=== PATIENT | female | born 1980 | race Caucasian/White ===

== ENCOUNTER 2018-03-19 18:11 | Inpatient (IN) | payer OTHER ==
[~2018-03-19] VITALS: Ht 167.6 cm; Wt 110.5 kg
[~2018-03-19 18:11] MED LIST: CLON0.5T3 PO; EFF50 PO; ESCI1TAB10 PO; ETONMIS VAGRING
--- NOTE | 2018-03-19 18:51 | Progress Note ---
Progress Note Date of Service Mar 19, 2018. Progress Note 37 F P0000 at 39.5 weeks here to r/o labor. Cervix is 2-3/80/-2/vertex/soft. GBS is negative FHT Cat 1. Will ambulate.
[2018-03-19] MEDS ORDERED: PRENTAB26 PO (19:24)
[2018-03-19 19:27] VITALS: Ht 167.6 cm; Wt 110.5 kg
[2018-03-19] MEDS ORDERED: LACTATED RINGER'S 1000ML 1,000 ML IV PRN (22:12)
[2018-03-19] MEDS ORDERED: LACTATED RINGER'S 1000ML 1,000 ML IV SCH (22:12)
[2018-03-19] MEDS ORDERED: BUPIVACAINE 0.25% 30 ML VIAL ONE (22:32)
[2018-03-19] MEDS ORDERED: FENTANYL 2MCG/ML ROPIV 1.25MG/ML 100ML BAG EPI ONE (22:33)
[2018-03-19] MEDS ORDERED: FENTANYL CITRATE INJ 50 MCG/1 ML 2 ML VIAL ONE (22:33)
[2018-03-19] MEDS ORDERED: EpHEDrine SULFATE INJ 50 MG/ML AMP ONE (22:33)
[2018-03-19 22:43] LABS: HEMATOCRIT 38.1 % (37-47); HEMOGLOBIN 12.7 g/dL (12.0-16.0); MEAN CELL VOLUME 91.6 fL (80-100); MEAN CORPUSCULAR HEMOGLOBIN 30.5 pg (25-34); MEAN CORPUSCULAR HGB CONC 33.3 g/dl (32-36); MEAN PLATELET VOLUME 10.9 fL (7.4-10.4); PLATELET COUNT 196 K/uL (130-400); RED CELL DISTRIBUTION WIDTH CV 14.7 % (11.5-14.5); RED CELL DISTRIBUTION WIDTH SD 49.4 fL (36.4-46.3); WHITE BLOOD COUNT 13.29 K/uL (4.8-10.8)
[2018-03-19] MEDS ORDERED: BUTORPHANOL TARTRATE 1 MG/ML VIAL IV PRN (22:45)
--- NOTE | 2018-03-19 22:54 | Progress Note ---
Progress Note Date of Service Mar 19, 2018. Progress Note admit note patient rapidly progressed in labor to 7 cm. T Cat 1. Will admit and plan for epidural.
[2018-03-19] MEDS ORDERED: NALOXONE HCL INJ 1 MG in SODIUM CHLORIDE 0.9% 1000ML 1,000 ML IV PRN (23:54)
[2018-03-19] MEDS ORDERED: LACTATED RINGER'S 1000ML 500 ML IV PRN (23:54)
[2018-03-20] MEDS ORDERED: EpHEDrine SULFATE INJ 50 MG/ML AMP IV PRN
[2018-03-20] MEDS ORDERED: NALBUPHINE HCL INJ 10 MG/ML AMP IV PRN
[2018-03-20] MEDS ORDERED: FENTANYL 2MCG/ML ROPIV 1.25MG/ML 100ML BAG EPI PRN
[2018-03-20] MEDS ORDERED: DiphenhydrAMINE HCL 50 MG/ML VIAL IV PRN
[2018-03-20] MEDS ORDERED: NALOXONE HCL INJ 0.4 MG/1 ML VIAL/CARP IV PRN
[2018-03-20] MEDS ORDERED: OXYTOCIN 30 UNITS/500ML NSS IV ONE ×2 (00:16→04:19)
[2018-03-20] MEDS ORDERED: LACTATED RINGER'S 1000ML 1,000 ML IV SCH (04:41)
[2018-03-20] MEDS ORDERED: BENZOCAINE 20% AER SPR 82.5 GM CAN EXT PRN (04:45)
[2018-03-20] MEDS ORDERED: LANOLIN OINT EXT PRN (04:45)
[2018-03-20] MEDS ORDERED: MEASLES, MUMPS & RUBELLA VIRUS VIAL SQ. ONE (04:45)
[2018-03-20] MEDS ORDERED: DIPHTHERIA/TETANUS/PERTUSSIS 0.5 ML SYR/VIAL IM. ONE (04:45)
[2018-03-20] MEDS ORDERED: SUPERCREAM 0.870 % 15GM JAR EXT PRN (04:45)
[2018-03-20] MEDS ORDERED: OXYTOCIN 30 UNITS/500ML NSS IV PRN (04:45)
[2018-03-20] MEDS ORDERED: HYDROCORTISONE ACETATE 25 MG SUPP PR PRN (04:45)
[2018-03-20] MEDS ORDERED: OXYCODONE/ACETAMINOPHEN 5-325 TAB PO PRN (04:45)
--- NOTE | 2018-03-20 04:51 | Vaginal Delivery Summary ---
Vaginal Delivery Summary live female PRIETO over intact perineum with loose nuchal cord x1 reduced at delivery of head. Apgars 8/9 weight pending. Delayed cord clamping followed by cord blood and spontaneous delivery of intact placenta. No tears. EBL 200 ml. Mom and baby stable. Final sponge and instrument count are correct.
--- NOTE | 2018-03-20 06:53 | Anesthesia Procedure Note ---
Anesthesia Epidural Removal Nt Date & Time Mar 20, 2018 at 06:53 Vital Signs Pain Intensity: 0.0 Notes Mental Status: alert / awake / arousable, participated in evaluation Nausea / Vomiting: adequately controlled Pain: adequately controlled Airway Patency, RR, SpO2: stable & adequate BP & HR: stable & adequate Hydration State: stable & adequate Neuraxial Anesthesia: was administered, sensory block is resolving Anesthetic Complications: no major complications apparent, pt satisfied with anesthetic care Epidural: removed without complications, with tip intact
[2018-03-20] MEDS: IBUPROFEN 600 MG TAB PO PRN ×2 (06:58→23:49)
[2018-03-20 07:45] VITALS: BP 127/67; PULSE 82; TEMP 37.3
[2018-03-20] MEDS: PRENATAL VITAMIN TAB PO SCH (09:19)
[2018-03-20] MEDS: FERROUS SULFATE 325 MG TAB PO SCH (09:20)
[2018-03-20] MEDS: DOCUSATE SODIUM 100 MG CAP PO SCH ×2 (09:20→19:36)
[2018-03-20 12:00] VITALS: BP 134/89; PULSE 92; TEMP 37.3
[2018-03-20] MEDS: ACETAMINOPHEN 325 MG TAB PO PRN ×2 (12:38→19:36)
[2018-03-20 15:20] VITALS: BP 132/83; PULSE 83; TEMP 36.3
[2018-03-20 19:30] VITALS: BP 138/82; PULSE 90; TEMP 37.1
[2018-03-20 23:50] VITALS: BP 129/79; PULSE 81; TEMP 36.9
[2018-03-21 03:35] VITALS: BP 130/77; PULSE 82; TEMP 36.8
[2018-03-21] MEDS: ACETAMINOPHEN 325 MG TAB PO PRN ×2 (03:38→09:19)
[2018-03-21 07:02] LABS: HEMOGLOBIN 10.2 g/dL (12.0-16.0)
--- NOTE | 2018-03-21 07:41 | OB/GYN Progress Note ---
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 Patient is seen and examined. She feels well, no complaints. Ambulating without dizziness Voiding without difficulty Tolerating regular diet with out N&V Bleeding is minimal No fever/ chills/ CP/ SOB/ N&V/ Leg pain Breast feeding without problems Date Time Temp Pulse Resp B/P (MAP) Pulse Ox O2 Delivery O2 Flow Rate FiO2 03/21/18 03:35 36.8 82 16 130/77 (94) Room Air 03/20/18 23:50 36.9 81 18 129/79 (96) Room Air 03/20/18 23:50 Room Air 03/20/18 19:30 37.1 90 20 138/82 (100) Room Air 03/20/18 15:20 Room Air 03/20/18 15:20 36.3 83 18 132/83 (99) Room Air 03/20/18 12:00 37.3 92 18 134/89 (104) Room Air 03/20/18 07:45 37.3 82 18 127/67 (87) Room Air 03/20/18 07:45 Room Air Last 24 Hours Test 03/21/18 06:43 Hemoglobin 10.2 g/dL Hematocrit 31.0 % PE: General: Alert, orientedx3, NAD Abd: soft, NT, fundus firm, below Umbilicus Perineum intact, Lochia rubra minimal Ext; NT, no edema AP: 37 yo s/p , ppd# 1 VSS Afebrile doing well Continue routine care All questions were answered D/C home tomorrow
[2018-03-21 08:00] VITALS: BP 125/77; PULSE 70; TEMP 36.9
[2018-03-21] MEDS: PRENATAL VITAMIN TAB PO SCH (08:11)
[2018-03-21] MEDS: DOCUSATE SODIUM 100 MG CAP PO SCH ×2 (08:11→19:53)
[2018-03-21] MEDS: FERROUS SULFATE 325 MG TAB PO SCH (08:11)
[2018-03-21 15:40] VITALS: BP 122/73; PULSE 81; TEMP 37.3
[2018-03-21] MEDS ORDERED: BISACODYL 5 MG TABEC PO SCH (20:00)
[2018-03-21 23:15] VITALS: BP 134/69; PULSE 66; TEMP 36.7
[2018-03-22] MEDS: ACETAMINOPHEN 325 MG TAB PO PRN (02:09)
[2018-03-22] MEDS ORDERED: BISACODYL 10 MG SUPP PR PRN (07:00)
[2018-03-22] MEDS: DOCUSATE SODIUM 100 MG CAP PO SCH (07:54)
[2018-03-22] MEDS: FERROUS SULFATE 325 MG TAB PO SCH (07:55)
[2018-03-22] MEDS: PRENATAL VITAMIN TAB PO SCH (07:55)
[2018-03-22 08:00] VITALS: BP 127/78; PULSE 65; TEMP 36.6
[2018-03-22] MEDS ORDERED: MTR600X PO (09:51)
--- NOTE | 2018-03-22 09:52 | Discharge Instructions ---
Discharge Instructions Date of Service Mar 22, 2018. Admission Reason for Admission: Labor Check Discharge Discharge Diagnosis / Problem: term delivered Discharge Goals Goal(s): Routine recovery after delivery Activity Recommendations Activity Limitations: as noted below Lifting Limitations: no more than 10 pounds Exercise/Sports Limitations: gradually increase as tolerated May Resume Sexual Activity: after follow-up appointment Shower/Bathe: no limitations Driving or Machine Use: resume 3 days after discharge . Instructions / Follow-Up Instructions / Follow-Up ACTIVITY RECOMMENDATIONS: * Gradual return to full activity over the next 2-3 weeks. * No lifting - nothing heavier than baby over the next 2-3 weeks. * Do not engage in vigorous exercise, sexual activity or sports until cleared by your physician. * Do not drive or operate any motorized equipment until cleared by your physician. * You may shower/bathe daily. BREAST CARE: If you are not breast feeding: * Wear a supportive bra 24 hours a day for one to two weeks. * Avoid stimulating your breasts and nipples as much as possible during the first few weeks after delivery. * When taking a shower, have the warm water hit your back, not breasts. * When your breasts feel full, apply ice packs. Usually three to four times a day helps ease the discomfort. * Take a mild pain medication (Tylenol/Motrin) when you are uncomfortable. If breast feeding: * Use breast milk to lubricate nipples. Lansinoh cream may be used for sore nipples. You do not need to remove cream prior to breast feeding. If using a different brand of cream, check the label for directions regarding removal of cream prior to nursing. * Wear a supportive bra. * If having problems with breasts or breast feeding, call a nissan sales consultant or your health care provider. EPISIOTOMY CARE: After delivery, if you have an episiotomy (stitches), the following steps will ease discomfort and aid healing. * For the first 24 hours after delivery, place ice packs next to your episiotomy to help reduce swelling. * After the first 24 hour-period, sitz baths, either portable or in the tub, are suggested. A shower with a shower arm sprayed over the episiotomy may be comforting. * Denisse care should be done after each voiding and bowel movement. Squirt warm water from a plastic bottle over the perineum (region of the body between the anus and urinary opening) and pat dry. * Use Dermoplast to ease discomfort. Shake container. [place] directly over the episiotomy. * Place a Tucks on a clean sanitary pad next to your episiotomy. OVER THE COUNTER MEDICATION: * For discomfort or pain, you may use Acetaminophen (Tylenol), Ibuprofen (Advil ), or Naproxen (Aleve) following the package directions. * For constipation you may use Colace following the package directions. SPECIAL CARE INSTRUCTIONS: When you are discharged from the hospital, it is important for you to follow the instructions listed below: * During the first week at home, you should be able to care for yourself and your baby. In addition, the usual light household activities are encouraged. * Limit your activities to the way you feel. Do not try to clean the house or move furniture. Be sensible. * If you actively engage in sports and have done so up until the time of your delivery, you may resume these activities as soon as you feel able. This may take up to one month or even longer. Use good judgment. * Continue to take your vitamins for at least six weeks after the of your baby. * Your diet need not be limited unless you were on a special diet before your delivery. Breast-feeding mothers need around 2500 calories per day and at least 64-80 ounces of fluid per day (8 to 10 glasses). * You should eat foods from the four major food groups. Crash diets or fad diets are to be avoided. Eating lean meats, fresh fruits and vegetables, low-fat dairy products, high fiber foods and a regular exercise program, will help you get back to your pre- weight without putting your health at risk. * Constipation is sometimes a problem after delivery. Take a mild laxative as needed. If breast feeding, Milk of Magnesia is acceptable to use. You may use a suppository or Fleets enema if no episiotomy. * A daily shower or tub bath is suggested. Be sure to thoroughly and gently dry the perineum. * A bloody vaginal discharge will usually continue until around four weeks post . A small amount of bleeding may continue for as long as six weeks. Vaginal discharge changes from the bright red bleeding after delivery to pink then brownish and finally yellowish-pink before becoming white and disappearing. * Bleeding may increase with activity. Your first period may come in 4-8 weeks. If you are breast feeding, your period may be delayed even longer. * Orchid (sex) can begin whenever both you and your partner feel comfortable and do not have any form of genital infection. It is recommended that you wait until after your return appointment and discuss with your physician. If you have questions, please talk to your health care practitioner. A condom should be used to prevent infection and . * Foreplay, gentle intercourse and lubrication is very important the first several times to prevent pain. A water-based lubricant such as K-Y jelly or Astroglide may be used. * Tampons may be used six weeks after delivery. * Douching should be avoided for 6 weeks after delivery. * If you have RH negative blood and your baby is RH positive, you will receive RHOGAM by injection prior to discharge. The nurse will give you a card to keep with you that has the date and place that you received RHOGAM after delivery. * During your care, you had a Rubella screen done to check for the presence of rubella antibodies in your blood. If your test was negative, you will receive a Rubella vaccine prior to discharge. This vaccine may cause a fever, soreness at the injection site and flu-like symptoms. If these symptoms persist, notify your health care practitioner. is not advised for three months after a Rubella vaccine. There is a higher chance of having a baby with defects if conceived within three months of getting the vaccine. * If you were discharged 24 hours from delivery or before 48 hours: Visiting nurses will come to your home 48 hours after discharge to assess you and your baby. The visiting nurse will meet with you while you are in the hospital to arrange a time and get directions to your home. * Verbalizes understanding of car seat law as reviewed with patient nursing. * Car Seat hand-out given and reviewed with patient by nursing. * Shaken baby information reviewed with patient by nursing. Call you doctor if: * Heavy bleeding (saturating several pads an hour) or passing clots the size of your fist. * A fever >101 degrees F (38.3 degrees C) on two occasions four hours apart and/or chills. * Unusual pain in the pelvic or vaginal areas. * "Baby Blues" lasting longer than two weeks. If you have any questions or concerns, call your health care practitioner at . FOLLOW-UP VISIT: * Please call the office at to schedule a 6 week examination. It is important you keep this appointment. * It is important for you to make arrangements for either yearly or twice yearly check-ups thereafter. Current Hospital Diet Patient's current hospital diet: Gluten Free Diet Discharge Diet Recommended Diet: Regular OB Diet Fluid Restriction: None Pending Studies Studies pending at discharge: no Medical Emergencies . Who to Call and When: Medical Emergencies: If at any time you feel your situation is an emergency, please call 911 immediately. . Non-Emergent Contact Non-Emergency issues call your: Primary Care Provider . . "Provider Documentation" section prepared by Hay Reese. .
--- NOTE | 2018-03-22 09:54 | OB/GYN Progress Note ---
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 Subjective conversation w/ patient, physical exam Ambulation: ambulating normally Voiding: no voiding problems Passing Gas: Yes Diet Tolerance: Regular Diet Lochia: Small Feeding Type: Breast Feeding Objective Vital Signs Date Time Temp Pulse Resp B/P (MAP) Pulse Ox O2 Delivery O2 Flow Rate FiO2 03/22/18 08:00 36.6 65 16 127/78 (94) Room Air 03/22/18 08:00 Room Air 03/21/18 23:15 36.7 66 18 134/69 (90) Room Air 03/21/18 23:15 Room Air 03/21/18 15:40 Room Air 03/21/18 15:40 37.3 81 18 122/73 (89) Room Air Physical Exam General Appearance: WELL-APPEARING, NO APPARENT DISTRESS Abdomen: non tender, soft Fundus: Firm Extremities: non-tender, no pedal edema, no calf tenderness Assessment and Plan Post- Day Number: 2 Continue Routine Care: discharged
[2018-03-22 11:30] VITALS: BP_DIAS 78; PULSE 65; TEMP 36.6
== END 2018-03-22 11:35 | disposition home or self-care (01) | DRG 775 ==
LOC: C.LD 18:11 → C.OPB 18:11 → C.LD 22:13 → C.OPB 22:13 → C.OBG 03-20 08:30
PROVIDERS: ADMIT Obstetrics & Gynecology; ATTEND Obstetrics & Gynecology
PROC: 10E0XZZ Delivery of Products of Conception, External Approach (ICD-10-PCS; principal; 2018-03-20)
DX: O69.81X0 Labor and delivery complicated by cord around neck, without compression, not applicable or unspecified (principal); Z3A.39 39 weeks gestation of pregnancy; Z37.0 Single live birth

== ENCOUNTER 2018-03-26 03:14 | Emergency (ER) | payer OTHER ==
[~2018-03-26] VITALS: Ht 167.6 cm; Wt 104.5 kg
[~2018-03-26 03:14] MED LIST changes: -CLON0.5T3 PO; -EFF50 PO; -ESCI1TAB10 PO; -ETONMIS VAGRING; +MTR600X PO; +PRENTAB26 PO
[2018-03-26 03:18] VITALS: TEMP 36.4; Ht 167.6 cm; Wt 104.5 kg
[2018-03-26] MEDS ORDERED: HYDROmorphone INJ 2 MG/ML SYR/VIAL ONE (03:40)
[2018-03-26] MEDS ORDERED: KETOROLAC TROMETHAMINE 30 MG/ML VIAL ONE (03:40)
[2018-03-26] MEDS ORDERED: OPTIRAY 320 IV PRN (04:00)
[2018-03-26 04:07] LABS: BASO % 0.2 %; BASO ABS # 0.01 K/uL (0-0.2); EOS % 1.9 %; EOS ABS # 0.12 K/uL (0-0.5); HEMATOCRIT 35.9 % (37-47); HEMOGLOBIN 11.7 g/dL (12.0-16.0); IG# 0.01 K/uL (0.00-0.02); LYMPH % 24.8 %; LYMPH ABS # 1.59 K/uL (1.2-3.4); MEAN CELL VOLUME 92.3 fL (80-100); MEAN CORPUSCULAR HEMOGLOBIN 30.1 pg (25-34); MEAN CORPUSCULAR HGB CONC 32.6 g/dl (32-36); MEAN PLATELET VOLUME 9.4 fL (7.4-10.4); MONO % 9.7 %; MONO ABS # 0.62 K/uL (0.11-0.59); NEUT % 63.2 %; NEUT ABS # 4.06 K/uL (1.4-6.5); PLATELET COUNT 227 K/uL (130-400); RED CELL DISTRIBUTION WIDTH CV 14.5 % (11.5-14.5); RED CELL DISTRIBUTION WIDTH SD 49.6 fL (36.4-46.3); WHITE BLOOD COUNT 6.41 K/uL (4.8-10.8)
--- NOTE | 2018-03-26 04:08 | EMERGENCY ROOM VISIT NOTE ---
History Report prepared by Marilu: Bryan Nolasco Under the Supervision of: Dr. Ragini Wall D.O. First contact with patient: 03:25 Chief Complaint: RIB PAIN Stated Complaint: PAIN IN CHEST/RIB AREA History of Present Illness The patient is a 37 year old female who presents to the Emergency Room with complaints of persistent left rib pain since 1800 last night. She notes the pain initially started on the left side of her back and radiated to her left ribs. She notes her back pain resolved prior to going to bed, though the left side rib pain persisted. She currently rates her pain an 8/10 in severity. She reports the pain worsens with movement of her left arm and deep breaths. She denies any recent shortness of breath. She denies any underlying medical problems. She recently gave vaginally March 20, 2018 here at [facility]. She denies any complications with the delivery. She notes that she is pumping breast milk and trying to breastfeed. She is supplementing formula for her baby. She denies any coughing. She denies any abdominal pain. She notes leg swelling, which she reports has been worsening since the delivery. She denies any leg cramping. She reports using a hot pack on her left side to help with the pain, though no relief; she reports the area is now red. Source of History: patient Onset: since 1800 last night Position: other (left rib) Symptom Intensity: 8/10 Timing: other (persistent) Modifying Factors (Worsening): breathing, movement Associated Symptoms: + back pain, No cough, No SOB, No abdominal pain Note: Notes leg swelling and redness to left ribs. Denies any leg cramping. Review of Systems See HPI for pertinent positives & negatives. A total of 10 systems reviewed and were otherwise negative. 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 Family History No pertinent family history Social History Smoking Status: Former Smoker Smokeless Tobacco Use: No Alcohol Use: none Drug Use: none Marital Status: in relationship Housing Status: lives with family Occupation Status: employed Current/Historical Medications Scheduled Multivit/Min/Iron/Fol Ac/Pren ( Vitamin), 1 TAB PO DAILY Scheduled PRN Ibuprofen (Ibuprofen), 600 MG PO Q4H PRN for PAIN, RAMIREZ, CRAMPING OR FEVER Allergies Coded Allergies: Gluten (Verified Allergy, Unknown, unknown, 03/22/18) Sulfa Drugs (Verified Allergy, Unknown, 03/22/18) Physical Exam Vital Signs Date Time Temp Pulse Resp B/P (MAP) Pulse Ox O2 Delivery O2 Flow Rate FiO2 03/26/18 05:28 55 18 153/89 98 Room Air 03/26/18 04:17 61 18 137/81 96 Room Air 03/26/18 03:18 36.4 79 20 155/96 96 Room Air Physical Exam General: Appears very uncomfortable especially with deep breathing or movement. HEENT: Head - normocephalic and atraumatic Pupils are equal, round, and reactive to light. Extraocular eye muscles are intact, and sclera are anicteric. Nose - moist nasal mucosa without discharge. Mouth - moist buccal mucosa. Oropharynx is nonerythematous and there is no tonsillar exudate or edema noted. Neck: Supple; no JVD, nuchal rigidity, cervical lymphadenopathy. CHEST: 1st degree burn to left lateral breast and left lateral chest wall. Pain with palpation over left anterior chest wall, no evidence of mastitis. Heart: Regular rate and rhythm. There is a normal S1 and S2 with no murmurs, clicks, or gallops appreciated. Lungs: Clear to auscultation bilaterally with no wheezes, rales, or rhonchi. Abdomen: Soft, completely nontender, nondistended, with good bowel sounds. There are no palpable pulsatile masses or hepatosplenomegaly. There is no guarding, rigidity, or rebound noted. Extremities: No evidence of cyanosis, clubbing, or edema. There are easily palpable peripheral pulses. Skin: warm and dry with good turgor and no rashes. Medical Decision & Procedures ER Provider Diagnostic Interpretation: Radiology results as stated below per my review and the radiologist's interpretation: CTA CHEST: No evidence of PE. Lungs are clear. No pleural effusions. No adenopathy. Heart size is normal. Aorta is unremarkable. Radiologist: Manuel Rankin MD Study ready at 04:49 and initial results transmitted at 05:08 Laboratory Results 03/26/18 03:50 Red Blood Count 3.89, Mean Corpuscular Volume 92.3, Mean Corpuscular Hemoglobin 30.1, Mean Corpuscular Hemoglobin Concent 32.6, Mean Platelet Volume 9.4, Neutrophils (%) (Auto) 63.2, Lymphocytes (%) (Auto) 24.8, Monocytes (%) (Auto) 9.7, Eosinophils (%) (Auto) 1.9, Basophils (%) (Auto) 0.2, Neutrophils # (Auto) 4.06, Lymphocytes # (Auto) 1.59, Monocytes # (Auto) 0.62, Eosinophils # (Auto) 0.12, Basophils # (Auto) 0.01 03/26/18 03:50 Test 03/26/18 03:50 03/26/18 05:22 White Blood Count 6.41 K/uL (4.8-10.8) Red Blood Count 3.89 M/uL (4.2-5.4) Hemoglobin 11.7 g/dL (12.0-16.0) Hematocrit 35.9 % (37-47) Mean Corpuscular Volume 92.3 fL (80-100) Mean Corpuscular Hemoglobin 30.1 pg (25-34) Mean Corpuscular Hemoglobin Concent 32.6 g/dl (32-36) Platelet Count 227 K/uL (130-400) Mean Platelet Volume 9.4 fL (7.4-10.4) Neutrophils (%) (Auto) 63.2 % Lymphocytes (%) (Auto) 24.8 % Monocytes (%) (Auto) 9.7 % Eosinophils (%) (Auto) 1.9 % Basophils (%) (Auto) 0.2 % Neutrophils # (Auto) 4.06 K/uL (1.4-6.5) Lymphocytes # (Auto) 1.59 K/uL (1.2-3.4) Monocytes # (Auto) 0.62 K/uL (0.11-0.59) Eosinophils # (Auto) 0.12 K/uL (0-0.5) Basophils # (Auto) 0.01 K/uL (0-0.2) RDW Standard Deviation 49.6 fL (36.4-46.3) RDW Coefficient of Variation 14.5 % (11.5-14.5) Immature Granulocyte % (Auto) 0.2 % Immature Granulocyte # (Auto) 0.01 K/uL (0.00-0.02) Anion Gap 6.0 mmol/L (3-11) Est Creatinine Clear Calc Drug Dose 166.6 ml/min Estimated GFR () 138.2 Estimated GFR (Non- 119.3 BUN/Creatinine Ratio 15.6 (10-20) Calcium Level 8.3 mg/dl (8.5-10.1) Total Bilirubin 0.4 mg/dl (0.2-1) Direct Bilirubin < 0.1 mg/dl (0-0.2) Aspartate Amino Transf (AST/SGOT) 23 U/L (15-37) Alanine Aminotransferase (ALT/SGPT) 38 U/L (12-78) Alkaline Phosphatase 100 U/L (45-117) Troponin I < 0.015 ng/ml (0-0.045) Total Protein 6.5 gm/dl (6.4-8.2) Albumin 2.3 gm/dl (3.4-5.0) Lipase 120 U/L (73-393) Urine Color YELLOW Urine Appearance CLEAR (CLEAR) Urine pH 7.0 (4.5-7.5) Urine Specific [place] > 1.045 (1.000-1.030) Urine Protein NEG (NEG) Urine Glucose (UA) NEG (NEG) Urine Ketones NEG (NEG) Urine Occult Blood 2+ (NEG) Urine Nitrite NEG (NEG) Urine Bilirubin NEG (NEG) Urine Urobilinogen NEG (NEG) Urine Leukocyte Esterase MODERATE (NEG) Urine WBC (Auto) 10-30 /hpf (0-5) Urine RBC (Auto) 5-10 /hpf (0-4) Urine Hyaline Casts (Auto) 1-5 /lpf (0-5) Urine Epithelial Cells (Auto) 10-20 /lpf (0-5) Urine Bacteria (Auto) NEG (NEG) Laboratory results per my review. Medications Administered Medications (Trade) Dose Ordered Sig/Ada Route Start Time Stop Time Status Last Admin Dose Admin Hydromorphone HCl (Dilaudid Inj) 2 mg STK-MED ONCE .ROUTE 03/26/18 03:40 03/26/18 03:41 DC 03/26/18 03:45 2 MG Ketorolac Tromethamine (Toradol Inj) 30 mg STK-MED ONCE .ROUTE 03/26/18 03:40 03/26/18 03:41 DC 03/26/18 03:44 30 MG Hydromorphone HCl (Dilaudid Inj) 1 mg NOW STAT IV 03/26/18 05:10 03/26/18 05:15 DC 03/26/18 05:16 1 MG Procedure 0340: Ordered Toradol 30 mg IV and Dilaudid 2 mg IV Ordered dilaudid 1 mg IV ECG Per My Interpretation Indication: back/shoulder pain Rate (beats per minute): 69 Rhythm: normal sinus Findings: nonspecific-ST abn, no acute ischemic change, no ectopy ED Course 0334: Past medical records reviewed. The patient was evaluated in room B8. A complete history and physical exam was performed. IV lock was established. Labs were drawn as above. A 12-lead EKG was obtained as described above. 0340: Ordered Toradol 30 mg IV and Dilaudid 2 mg IV. The patient went for CT scan of the chest to rule out PE or amniotic fluid emboli. 0510: Upon returning from radiology, the patient had increased discomfort to the left anterior chest wall from lying flat. I ordered Dilaudid 1 mg IV 0522: I reassessed the patient at this time. The patient's family states that she is feeling better. The patient was providing a urine specimen. 0536: I reassessed the patient at this time. She feels much better. I discussed the results and treatment plan with the patient. I answered all pertaining questions that she had. She expressed understanding and verbalized agreement. The patient will be discharged home with Percocet. Medical Decision The patient is a 37 year old female who presents to the ED with left rib pain. Differential diagnosis includes amniotic fluid embolus, PE, shingles, mastitis, and pleurisy. Lab results showed: No leukocytosis. Stable H&H. Normal renal function. Normal glucose. Normal LFTs. Normal Lipase. Urine: Moderate blood, 5-10 RBC. No bacteria. 10-30 WBC. Moderate leukocyte esterase. It will go for culture. This is a 37-year-old female patient who is 5 days and presents with severe left anterior chest wall pain. The patient notes increased discomfort with deep breathing or any type of movement of her upper body or left upper extremity. The patient got moderate relief of her discomfort with IV Toradol and Dilaudid. She went for CT scan of the chest to rule out PE. This was negative. The patient was encouraged to use Motrin for the discomfort but was given a prescription for Percocet to use if the pain were more severe. I encouraged the patient to pump her breast milk and dump it after having received IV opioids here in the emergency department. She explained that she did not think that she was going to continue with breast-feeding. The patient was encouraged to follow-up with her director payer on Tuesday or Tuesday if the left chest wall pain persists and to follow-up with her blood pressure. [place] Drug Monitoring Program Search Results: no issues identified Medication Reconcilliation Current Medication List: was personally reviewed by me Blood Pressure Screening Patient's blood pressure: Elevated blood pressure Blood pressure disposition: Referred to PCP Impression Primary Impression: Left-sided chest wall pain Scribe Attestation The scribe's documentation has been prepared under my direction and personally reviewed by me in its entirety. I confirm that the note above accurately reflects all work, treatment, procedures, and medical decision making performed by me. Departure Information Dispostion Home / Self-Care Referrals Sami Jack III, M.D. (PCP) Forms HOME CARE DOCUMENTATION FORM, IMPORTANT VISIT INFORMATION, WORK / SCHOOL INSTRUCTIONS Patient Instructions ED Chest Pain Costochondritis, My [facility] Additional Instructions Rest. Motrin - 800mg every 8 hours with food for pain. If you decide to continue to breast feed, pump and dump for next 8 hours Percocet - 2 tabs every 6 hours for pain. Follow up with OB on Tuesday or Tuesday for pain
[2018-03-26 04:27] LABS: ALBUMIN 2.3 gm/dl (3.4-5.0); ALT/SGPT 38 U/L (12-78); BLOOD UREA NITROGEN 9 mg/dl (7-18); CALCIUM 8.3 mg/dl (8.5-10.1); CARBON DIOXIDE 26 mmol/L (21-32); CREATININE 0.57 mg/dl (0.60-1.20); GLUCOSE 93 mg/dl (70-99); LIPASE 120 U/L (73-393); POTASSIUM 3.9 mmol/L (3.5-5.1); SODIUM 138 mmol/L (136-145)
[2018-03-26 04:32] LABS: ALKALINE PHOSPHATASE 100 U/L (45-117); AST/SGOT 23 U/L (15-37); TOTAL PROTEIN 6.5 gm/dl (6.4-8.2)
[2018-03-26] MEDS ORDERED: HYDROmorphone INJ 1 MG/ML SYR IV STA (05:10)
[2018-03-26 05:28] VITALS: BP 153/89; PULSE 55; O2SAT 98
--- NOTE | 2018-03-26 07:26 | DIAGNOSTIC IMAGING REPORT ---
CT ANGIOGRAM OF THE CHEST CLINICAL HISTORY: Atypical chest pain. Recent childbirth. COMPARISON STUDY: No priors. TECHNIQUE: Following the IV administration of 110 cc of Optiray 320, CT angiogram of the chest was performed from the upper abdomen to the thoracic inlet utilizing the pulmonary embolus protocol. Images are reviewed in the axial, sagittal, and coronal planes. 3-D MIPS images are created and assessed. IV contrast was administered without complication. A dose lowering technique was utilized adhering to the principles of ALARA. CT DOSE: 598.24 mGy.cm FINDINGS: Thyroid: Imaged portions of the thyroid gland are normal in size and attenuation. Thoracic aorta: The thoracic aorta is normal in caliber and demonstrates standard 3-vessel arch anatomy. No dissection is seen. Pulmonary vasculature: The pulmonary trunk is normal in caliber. There are no filling defects identified in main, lobar, or segmental pulmonary branches to suggest pulmonary embolus. Heart: The heart is normal in size and configuration, and without pericardial effusion. Lungs and pleural spaces: There are trace pleural effusions. No airspace consolidation is identified. The trachea and central airways are clear. Mediastinum: There is no mediastinal lymphadenopathy. Aruna: Clear. Axillae: There is no axillary lymphadenopathy. Upper abdomen: Partially visualized upper abdominal viscera is within normal limits. Skeletal structures: No lytic or blastic bony lesions are seen. IMPRESSION: 1. There is no evidence of pulmonary embolus in the main, lobar, or segmental pulmonary arteries. 2. Trace pleural effusions. 3. There is no airspace consolidation. Electronically signed by: Joe Pereira M.D. 03/26/2018 7:25 AM Dictated Date/Time: 03/26/2018 7:22 AM
== END 2018-03-26 05:57 | disposition home or self-care (01) ==
LOC: C.EDB 03:16
DX: R07.89 Other chest pain (principal); Z87.891 Personal history of nicotine dependence; Z88.2 Allergy status to sulfonamides; Z91.018 Allergy to other foods

== ENCOUNTER 2018-03-26 19:25 | Emergency (ER) | payer OTHER ==
[~2018-03-26] VITALS: Ht 167.6 cm; Wt 104.3 kg
[2018-03-26 19:27] VITALS: TEMP 37; Ht 167.6 cm; Wt 104.3 kg
[2018-03-26] MEDS ORDERED: KETOROLAC TROMETHAMINE 30 MG/ML VIAL IV STA (19:50)
--- NOTE | 2018-03-26 20:22 | DIAGNOSTIC IMAGING REPORT ---
TWO VIEW CHEST CLINICAL HISTORY: Left-sided chest pain. FINDINGS: PA and lateral chest radiographs are correlated with chest CT performed the same day 03/26/2018. The cardiomediastinal silhouette is unremarkable. The lungs and pleural spaces are clear. Trace pleural effusions seen by CT are not apparent on chest x-ray. There is no pneumothorax. The bony thorax appears intact. IMPRESSION: No active disease in the chest. Electronically signed by: Joe Pereira M.D. 03/26/2018 8:21 PM Dictated Date/Time: 03/26/2018 8:19 PM
[2018-03-26 20:36] LABS: BASO % 0.3 %; BASO ABS # 0.02 K/uL (0-0.2); EOS % 1.3 %; EOS ABS # 0.09 K/uL (0-0.5); HEMATOCRIT 36.5 % (37-47); IG# 0.02 K/uL (0.00-0.02); LYMPH % 22.6 %; LYMPH ABS # 1.61 K/uL (1.2-3.4); MEAN CELL VOLUME 92.4 fL (80-100); MEAN CORPUSCULAR HEMOGLOBIN 30.4 pg (25-34); MEAN CORPUSCULAR HGB CONC 32.9 g/dl (32-36); MEAN PLATELET VOLUME 9.4 fL (7.4-10.4); MONO % 7.6 %; MONO ABS # 0.54 K/uL (0.11-0.59); NEUT % 67.9 %; NEUT ABS # 4.84 K/uL (1.4-6.5); PLATELET COUNT 252 K/uL (130-400); RED CELL DISTRIBUTION WIDTH CV 14.5 % (11.5-14.5); RED CELL DISTRIBUTION WIDTH SD 49.6 fL (36.4-46.3); WHITE BLOOD COUNT 7.12 K/uL (4.8-10.8)
[2018-03-26] MEDS ORDERED: OXYCODONE HCL IR 5 MG TAB (IMMEDIATE RELEASE) PO STA (20:42)
[2018-03-26 20:53] LABS: CALCIUM 8.6 mg/dl (8.5-10.1); CREATININE 0.58 mg/dl (0.60-1.20); POTASSIUM 3.8 mmol/L (3.5-5.1)
[2018-03-26] MEDS ORDERED: HYDROmorphone INJ 1 MG/ML SYR IV STA (22:04)
[2018-03-26 23:09] VITALS: BP 140/94; PULSE 60; O2SAT 98
--- NOTE | 2018-03-27 01:34 | EMERGENCY ROOM VISIT NOTE ---
History Report prepared by Marilu: Markus Mendoza Under the Supervision of: Dr. Jesus Ba M.D. First contact with patient: 19:33 Chief Complaint: CHEST PAIN Stated Complaint: CHEST PAIN, SEEN HERE YESTERDAY History of Present Illness The patient is a 37 year old female who presents to the Emergency Room with complaints of severe, constant sharp pain localized to her left ribs and the center of her sternum beginning yesterday. She reports that the pain occasionally shoots through her back at its worst. The patient states that she developed the pain yesterday afternoon while she was changing her baby's diaper. She notes that her ribs began to hurt later and continue to hurt today. The patient states that her pain is worsened by moving, breathing deeply, or lying on her left side. She notes taking Tylenol and Ibuprofen throughout the day today, but states that neither alleviated her symptoms. The patient states that she was given Toradol for pain management earlier today which seemed to help her. She had a CAT scan earlier today which did not show any abnormality. She denies any fever, cough, abdominal pain, vomiting, abnormal bowel movements, melena, rash, redness to her left flank, history of shingles, or history of hypertension. The patient notes baseline swelling in her legs secondary to her recent . She states that she has had chicken pox in the past. The patient reports that she is currently breast feeding. Source of History: patient Onset: 1 day ago. Position: chest (Center ), other (Left flank. ) Symptom Intensity: severe Quality: sharp Timing: constant Modifying Factors (Worsening): breathing, movement, other (lying on left side. ) Modifying Factors (Relieving): other (none ) Associated Symptoms: No fevers, No cough, No vomiting, No abdominal pain, No melena, No rash Note: Denies: Abnormal bowel movements, redness to left flank. Associated Symptoms: Hematuria Review of Systems See HPI for pertinent positives & negatives. A total of 10 systems reviewed and were otherwise negative. 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 Family History No pertinent family history Social History Smoking Status: Never Smoker Alcohol Use: none Drug Use: none Marital Status: in relationship Housing Status: lives with family Occupation Status: employed Current/Historical Medications Scheduled Multivit/Min/Iron/Fol Ac/Pren ( Vitamin), 1 TAB PO DAILY Scheduled PRN Ibuprofen (Ibuprofen), 600 MG PO Q4H PRN for PAIN, RAMIREZ, CRAMPING OR FEVER Allergies Coded Allergies: Gluten (Verified Allergy, Unknown, unknown, 03/22/18) Sulfa Drugs (Verified Allergy, Unknown, 03/22/18) Physical Exam Vital Signs Date Time Temp Pulse Resp B/P (MAP) Pulse Ox O2 Delivery O2 Flow Rate FiO2 03/26/18 23:09 60 18 140/94 98 03/26/18 22:21 68 20 148/100 98 Room Air 03/26/18 19:27 37.0 71 18 171/95 98 Room Air Physical Exam Constitutional: Vital signs reviewed. Eyes: Pupils are equal round reactive to light. Conjunctiva are noninjected. ENT: Pharynx is clear without erythema or exudate. Mucous membranes are moist. Neck supple without meningeal signs. Respiratory: Clear to auscultation bilaterally. Breath sounds are equal bilaterally. Cardiovascular: Regular rate and rhythm. No rubs or gallops. GI: Soft, nondistended and nontender. Bowel sounds are present. Musculoskeletal: Tenderness along left ribs to palpation. Pain is reproduced with movement as well. Integumentary: No cyanosis. No evidence of zoster to the left flank. There is a subcentimeter erythematous papule without vesicle. Neurological: The patient is awake and alert. No focal deficits. Psychiatric: Normal affect. Medical Decision & Procedures ER Provider Diagnostic Interpretation: Radiology results as stated below per my review and the radiologist's interpretation: TWO VIEW CHEST CLINICAL HISTORY: Left-sided chest pain. FINDINGS: PA and lateral chest radiographs are correlated with chest CT performed the same day 03/26/2018. The cardiomediastinal silhouette is unremarkable. The lungs and pleural spaces are clear. Trace pleural effusions seen by CT are not apparent on chest x-ray. There is no pneumothorax. The bony thorax appears intact. IMPRESSION: No active disease in the chest. Electronically signed by: Joe Pereira M.D. 03/26/2018 8:21 PM Dictated Date/Time: 03/26/2018 8:19 PM Laboratory Results 03/26/18 20:20 Red Blood Count 3.95, Mean Corpuscular Volume 92.4, Mean Corpuscular Hemoglobin 30.4, Mean Corpuscular Hemoglobin Concent 32.9, Mean Platelet Volume 9.4, Neutrophils (%) (Auto) 67.9, Lymphocytes (%) (Auto) 22.6, Monocytes (%) (Auto) 7.6, Eosinophils (%) (Auto) 1.3, Basophils (%) (Auto) 0.3, Neutrophils # (Auto) 4.84, Lymphocytes # (Auto) 1.61, Monocytes # (Auto) 0.54, Eosinophils # (Auto) 0.09, Basophils # (Auto) 0.02 03/26/18 20:20 Test 03/26/18 20:20 03/26/18 20:29 White Blood Count 7.12 K/uL (4.8-10.8) Red Blood Count 3.95 M/uL (4.2-5.4) Hemoglobin 12.0 g/dL (12.0-16.0) Hematocrit 36.5 % (37-47) Mean Corpuscular Volume 92.4 fL (80-100) Mean Corpuscular Hemoglobin 30.4 pg (25-34) Mean Corpuscular Hemoglobin Concent 32.9 g/dl (32-36) Platelet Count 252 K/uL (130-400) Mean Platelet Volume 9.4 fL (7.4-10.4) Neutrophils (%) (Auto) 67.9 % Lymphocytes (%) (Auto) 22.6 % Monocytes (%) (Auto) 7.6 % Eosinophils (%) (Auto) 1.3 % Basophils (%) (Auto) 0.3 % Neutrophils # (Auto) 4.84 K/uL (1.4-6.5) Lymphocytes # (Auto) 1.61 K/uL (1.2-3.4) Monocytes # (Auto) 0.54 K/uL (0.11-0.59) Eosinophils # (Auto) 0.09 K/uL (0-0.5) Basophils # (Auto) 0.02 K/uL (0-0.2) RDW Standard Deviation 49.6 fL (36.4-46.3) RDW Coefficient of Variation 14.5 % (11.5-14.5) Immature Granulocyte % (Auto) 0.3 % Immature Granulocyte # (Auto) 0.02 K/uL (0.00-0.02) Anion Gap 7.0 mmol/L (3-11) Est Creatinine Clear Calc Drug Dose 163.6 ml/min Estimated GFR () 137.4 Estimated GFR (Non- 118.6 BUN/Creatinine Ratio 16.8 (10-20) Calcium Level 8.6 mg/dl (8.5-10.1) Bedside Troponin I < 0.030 ng/ml (0-0.045) Laboratory results as reviewed by me. Medications Administered Medications (Trade) Dose Ordered Sig/Ada Route Start Time Stop Time Status Last Admin Dose Admin Ketorolac Tromethamine (Toradol Inj) 30 mg NOW STAT IV 03/26/18 19:50 03/26/18 19:52 DC 03/26/18 20:34 30 MG Oxycodone HCl (Roxicodone Immediate Rel Tab) 5 mg NOW STAT PO 03/26/18 20:42 03/26/18 20:43 DC 03/26/18 21:04 5 MG Hydromorphone HCl (Dilaudid Inj) 1 mg NOW STAT IV 03/26/18 22:04 03/26/18 22:05 DC 03/26/18 22:21 1 MG ECG Per My Interpretation Indication: chest pain Rate (beats per minute): 69 Rhythm: normal sinus Findings: other (No ST elevations, no PVCs) ED Course 1936: The patient was evaluated in room A3. A complete history and physical exam was performed. I PBMP'd the patient, there were no matches. 1950: Ordered Toradol Inj 30mg IV. 2041: I reevaluated the patient, she is still experiencing pain. 2105: I performed a bedside ultrasound. No evidence of hydronephrosis. 2199: I reevaluated the patient. She is requesting something stronger for pain. Her mother states that she has a very low pain tolerance. 2041: Ordered Oxycodone HCL 5mg PO. 2203: Ordered Hydromorphone HCL 1mg IV. 2299: I reevaluated the patient. She is feeling better and is ready to go home. 2304: Upon reevaluation, the patient appeared to have improvement of her symptoms. I discussed tonight's findings with her. She verbalized agreement of the treatment plan. She was discharged home. Medical Decision This is a 37-year-old female presents with left-sided chest pain. Differential diagnosis includes pleurisy, costochondritis, rib fracture, zoster, pneumothorax. I did perform a limited focused review of portions of the patient 's old chart on the electronic medical record. The patient was in the ED at 0300 today for left sided back and rib pain. She had a cat scan of chest which was read as negative for PE. She was discharged with Percocet. I did evaluate the patient as noted above. The patient is here with left-sided chest pain since yesterday. She had a full evaluation earlier this morning including a CT scan as noted above. She is here because her pain has returned and is not manageable with [id number] medications. She did not fill her Percocet prescription because she was feeling better earlier and did not think she needed it. IV access was established. I did treat patient with Toradol IV. I did order and personally review the patient's 12-lead EKG and chest x- ray as described above. Her twelve-lead EKG is unremarkable. Chest x-ray does not show signs of pneumothorax or acute abnormality. I did order and review the patient's blood work as noted in the electronic medical record. Troponin is negative. I did reassess the patient. Her pain is not alleviated. She was given oxycodone. On reassessment she still had pain and requested something stronger. She did receive Dilaudid earlier today which helped her so I did give her 1 mg of Dilaudid IV. On reassessment she is feeling much better. Her pain is very reproducible with movement and palpation. I did consider the possibility of zoster because of the degree of pain she was professing but her mother did note that the patient does not have a very good pain tolerance in general. There is no sign of a rash to her side. As a precaution I did tell her to try to avoid contact with her until further evaluation. She does state that the is with her sister currently. She does have an appointment tomorrow to see her primary care physician. She was advised to keep that appointment and discharged in good condition. Medication Reconcilliation Current Medication List: was personally reviewed by me Blood Pressure Screening Patient's blood pressure: Elevated blood pressure Blood pressure disposition: Referred to PCP The patient is hypertensive. Impression Primary Impression: Left sided chest pain Scribe Attestation The scribe's documentation has been prepared under my direct and personally reviewed by me in its entirety. I confirm that the note above accurately reflects all work, treatment, procedures, and medical decision making performed by me. Departure Information Dispostion Home / Self-Care Referrals Sami Jack III, M.D. (PCP) Forms Call Back Authorization, HOME CARE DOCUMENTATION FORM, IMPORTANT VISIT INFORMATION Patient Instructions ED Chest Pain Atypical Unkn Cause, My [facility] Additional Instructions You have been examined and treated today on an emergency basis only. This is not a substitute for, or an effort to provide, complete comprehensive medical care. It is impossible to recognize and treat all injuries or illnesses in a single emergency department visit. It is therefore important that you follow up closely with your physician tomorrow per your appointment. Return for worsening symptoms or if you develop fever, vomiting, rash or any other concerning symptoms.
== END 2018-03-26 23:10 | disposition home or self-care (01) ==
LOC: C.EDB 19:26 → C.EDA 23:10
DX: R07.9 Chest pain, unspecified (principal)